=== PATIENT | female | born 1980 | race Caucasian/White ===

== ENCOUNTER 2024-02-16 08:34 | Emergency (ER) | payer OTHER ==
[2024-02-16] MEDS ORDERED: Acetaminophen 325 MG Tab PO ONE (08:52)
[2024-02-16] MEDS: oxyCODONE 5 MG Tab PO ONE (09:00)
[2024-02-16] MEDS: Acetaminophen 500 MG Tab PO ONE (09:00)
[2024-02-16] MEDS: Ibuprofen 200 MG Tab PO ONE (09:00)
[2024-02-16] MEDS: Ondansetron 4 MG Tab.DIS PO ONE (10:30)
== END 2024-02-16 10:45 | disposition home or self-care (01) ==
LOC: VM.ED 08:34
DX: S50.12XA Contusion of left forearm, initial encounter (principal); Z91.011 Allergy to milk products; Z88.8 Allergy status to other drugs, medicaments and biological substances; W19.XXXA Unspecified fall, initial encounter
CPT/HCPCS: 29065; 73090; 99283; A9270